=== PATIENT | male | born 1945 | race Caucasian/White ===

== ENCOUNTER 2018-10-07 06:19 | Day surgery (SDC) | payer MEDICARE, OTHER ==
[~2018-10-07] VITALS: Ht 175.3 cm; Wt 96.4 kg
[2018-10-07] VITALS (8 sets, daily range): BP systolic 143–194; BP diastolic 76–107
[~2018-10-07 06:19] MED LIST: LISI10TA4 PO; NO HOME MEDS
[2018-10-07] MEDS ORDERED: meperidine/PF 100mg/ml syringe ONE (06:44)
[2018-10-07] MEDS ORDERED: levoFLOXACIN-Levaquin 500mg/D5 100 ML IV ONE (06:45)
[2018-10-07] MEDS ORDERED: proCHLORperazine 10 MG/2 ml inj ONE (06:45)
[2018-10-07] MEDS ORDERED: diphenhydrAMINE 50 mg/ml inj ONE (06:45)
[2018-10-07] MEDS ORDERED: fentaNYL/PF 50MCG/1 ML 2ML syringe ONE (06:45)
[2018-10-07] MEDS ORDERED: MIDAZolam 5mg/5ml vial ONE (06:45)
[2018-10-07] MEDS ORDERED: LIDOcaine Viscous 15ml cup ONE (06:46)
[2018-10-07] MEDS ORDERED: glucagon, human recombinant 1mg kit ONE ×2 (06:46)
[2018-10-07] MEDS ORDERED: iohexol 300 MG/1 ML 50ml polymer ONE (06:46)
== END 2018-10-07 11:12 | disposition home or self-care (01) ==
LOC: GI LAB 06:19
PROVIDERS: ATTEND Internal Medicine Gastroenterology
DX: K83.1 Obstruction of bile duct (principal); K83.8 Other specified diseases of biliary tract; Z46.59 Encounter for fitting and adjustment of other gastrointestinal appliance and device; Z98.890 Other specified postprocedural states; Z90.49 Acquired absence of other specified parts of digestive tract
CPT/HCPCS: 43277; 99152; 99153; C1726; C1769; J0780; J1200; J1610; J1956; J2175; J2250; J3010; J7040; Q9967; 43274; A4620